=== PATIENT | male | born 1955 ===

== ENCOUNTER 2018-10-26 07:47 | Outpatient (CLI) | payer OTHER | END 2018-10-26 08:52 | disposition home or self-care (01) | LOC: NUCLEAR 07:47 | DX: R06.09 Other forms of dyspnea (principal); R00.1 Bradycardia, unspecified; I25.10 Atherosclerotic heart disease of native coronary artery without angina pectoris | CPT/HCPCS: J0153; A9500; 78452; 93017 ==